=== PATIENT | male | born 1945 | race Caucasian/White ===

== ENCOUNTER 2025-05-24 12:26 | Emergency (ER) | payer MEDICARE, BC ==
[2025-05-24] MEDS ORDERED: Lidocaine 1% (PF) 30 ML VIAL ONE (14:05)
[2025-05-24] MEDS ORDERED: Lidocaine 1% PF 5 ML VIAL ONE (14:06)
[2025-05-24] MEDS ORDERED: Boostrix 0.5 ML (Tdap) VIAL (>/=7 yrs of age) ONE (14:07)
[2025-05-24] MEDS ORDERED: Bacitracin 1 PK ONE (16:14)
== END 2025-05-24 16:22 | disposition home or self-care (01) ==
LOC: CSHERS 12:26
DX: S01.21XA Laceration without foreign body of nose, initial encounter (principal); I10 Essential (primary) hypertension; W01.198A Fall on same level from slipping, tripping and stumbling with subsequent striking against other object, initial encounter; Z79.899 Other long term (current) drug therapy; Z23 Encounter for immunization
CPT/HCPCS: 12011; 90471; 90715